=== PATIENT | male | born 1945 | race Caucasian/White ===

== ENCOUNTER → 2016-05-19 | Outpatient (CLI) | payer OTHER ==
--- NOTE | 2016-05-19 14:51 | CT ---
Unenhanced CT Scan of the Chest Clinical History: 70-year-old male who had smoked for 30 years (however, it has been 22 years since h e last smoked). Evaluate for COPD. Technique: Standard unenhanced axial CT images were acquired helically from the base of the neck to t he upper abdomen and reformatted at 2.50 and 1.25-mm increments, and reviewed in bone, soft tissue, a nd lung and liver windows. Parasagittal and paracoronal reconstructed images were reviewed on the wor kstation. The DFOV is 41.8 cm. A dose reduction protocol was used. Comparison Studies: Chest radiography dated April 01, 2016 and August 05, 2010, and CT imaging of t he abdomen (which included the lung bases), dated May 14, 2012. Findings: The lungs are hyperexpanded, and there is a moderate degree of centrilobular emphysema, mos t pronounced in the upper lobes, although to a lesser degree involving portions of the lung bases. Th ere are also some components of peripheral paraseptal emphysema. There is a 3 x 7 mm noncalcified nod ule seen near the right minor fissure on series 3 image 136, and according to Fleischner Society Guid elines in this high risk patient, initial follow-up CT at 3-6 months, then at 9-12 months and finally at 24 months (if no change). There is some probable parenchymal scarring seen along the anterior por tion of the right middle lobe extending [id number] on series 3, images 145-164. There is a 2-m m calcified granuloma in the superior segment of the right lower lobe on series 3, image 139. There i s some linear scarring in the anterolateral right lower lobe on series 3 image 149. The trachea is mi dline. There is no endobronchial tree lesion observed. There is no pleural effusion. There are some s hotty subcentimeter benign-appearing mediastinal lymph nodes containing fatty keith. The thyroid gland appears normal. There is no supraclavicular or axillary or upper abdominal adenopathy. A small hiata l hernia is present. There is atherosclerotic calcification of the LAD, proximal left circumflex, the right coronary artery, and a portion of the PDCA. The heart size is normal. There is mild ectasia of the ascending thoracic aorta measuring 3.6 x 3.6 cm. The descending thoracic aorta is normal, measur ing 2.5 x 2.8 cm. There is no pericardial effusion The osseous structures are notable for degenerativ e features of the thoracic spine with some vacuum disk phenomena and cortical endplate degenerative S chmorl's nodes. The upper abdomen is notable for a small accessory splenule, series 2 image 123, and a retroaortic left renal vein. Impression: 1. Lung hyperexpansion with moderate emphysema. 2. There is a 3 x 7 mm noncalcified nodule near the right minor fissure. Please see the above algorit hm for follow up in this high risk patient. 3. Extensive coronary artery atherosclerotic calcifications.
== END ==
LOC: CIMAGING 10:53
PROVIDERS: ATTEND Internal Medicine Pulmonary Disease
DX: J43.9 Emphysema, unspecified (principal); Z87.891 Personal history of nicotine dependence; R91.1 Solitary pulmonary nodule; J98.4 Other disorders of lung; I25.10 Atherosclerotic heart disease of native coronary artery without angina pectoris
CPT/HCPCS: 71250-PO